=== PATIENT | male | born 1950 | race Caucasian/White ===

== ENCOUNTER 2018-05-22 09:02 | Day surgery (SDC) | payer MEDICARE, OTHER, SELFPAY ==
[2018-05-19 13:03] VITALS: BMI 32.3
[2018-05-22] VITALS (12 sets, daily range): BP systolic 119–160; BP diastolic 63–120; PULSE 61–103; RESP 10–18; TEMP 36.2–37.1; O2SAT 93–100; BMI 31.1
--- NOTE | 2018-05-22 09:51 | SUR.PREOP ---
Pt ready for OR at this time. Nursing admission completed, IV in place and LR at TKO, Pt has been clipped, Chlorhexedine wipes to L wrist completed and SCD's in place. Awaiting surgeon and Anesthesia to see Pt. WAREHOUSE TEAM MEMBER will also come by and see Pt prior to taking to OR suite.
[2018-05-22] MEDS: LACTATED RINGERS 1,000 ML 42 ML IV (10:15)
[2018-05-22] MEDS: CEFAZOLIN 2 GM/100 ML FROZ.PIGGY IV (10:42)
--- NOTE | 2018-05-22 11:06 | SUR.OPER ---
Supine on padded OR bed, head on pillow, right arm secured on padded arm board at <90 degrees abduction, left arm on hand table, legs uncrossed, safety belt at thigh, tape over blanket over lower legs.
[2018-05-22] MEDS: BUPIVACAINE 0.5% W/ EPI (PF) VIAL 30 ML INJ (12:22)
--- NOTE | 2018-05-22 12:29 | PM.PREOP ---
Pre-operative Note Interval Note Pre-op Check: Yes History & Physical Reviewed by Physician Changes: No
[2018-05-22] MEDS: fentaNYL 100 MCG/2 ML INJ IV ×3 (12:38→13:10)
[2018-05-22] MEDS: HYDROMORPHONE 2 MG INJ 0.5 MG IV ×3 (12:45→12:55)
--- NOTE | 2018-05-22 13:02 | P.OP_ITS ---
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 Patient had significant arthritis as well as pain and dysfunction that was unresponsive to conservative treatment. Surgeon: Tawanda Portillo Associate Pathologist: Maria Isabel Craig Click Yes if Unassisted: No Anesthesia Type: General Operative Notes Findings: Signs of a SNAC WRIST. 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 Collapse of the capitate on the lunate and a significant DISI deformity. No sign of any significant arthritis between the lunate and the radius. Closure Type: primary Specimen(s): none sent Implants & Drains: Trimed 4 corner fusion plate Applied: cast(s) and implant(s) Estimated Blood Loss (mL): 10 Blood products transfused: none Tourniquet time (min): 85 Procedure in detail: On date of service, patient was met in the holding area. Operative site was signed and witnessed by the OR staff. The surgery once again discussed with patient and any remaining questions they had were answered fully. Patient was taken back to the operating theater and placed on the operating table in the supine position. Great care taken to ensure that all bony prominences were properly padded. A well-padded tourniquet was placed up along the upper extremity. A timeout was performed to verify patient's name, procedure, and operative site. The upper extremity was then prepped and draped in the normal sterile fashion. An Esmarch was used to exsanguinate the limb and the tourniquet was turned up to 250 mm mercury. A midline incision was made to the dorsal aspect of the wrist starting at the proximal aspect of the 3rd metacarpal proceeding proximally passed Rancho's tubercle. 15 blade was used to incise the skin and fascial tissue. This gave us good visualization of the extensor retinaculum. The extensor retinaculum was split. This allowed us to retract the third and fourth extensor compartments as well as the 2nd. This also gave us good visualization of the wrist capsule. The ligaments splitting approach to the carpus was performed. This gave us good visualization of the entire carpus. Findings of the carpus listed above. Patient had the previous nonunion of the scaphoid. Osteotome was used to split the scaphoid and then the scaphoid was then removed. This was saved for a bone grafting. Once the scaphoid was removed the wrist joint was copiously irrigated. The deformity of the lunate was corrected. K-wire was used to correct the DISI deformity of the lunate and a 2nd K-wire was placed through the radius into the lunate to hold it in that corrected position. Using a combination of a bur as well as rongeur and curette the remaining cartilage surface was removed from all 4 bones until we had good bleeding bony surfaces. Bone graft from the scaphoid was placed between the lunate and triquetrum as well as the hamate and capitate. K-wires were then used to provisionally hold all 4 bones together. X-rays were then obtained verifying overall reduction of the carpus. Next, a Reamer was used to ream the area for the eventual plate. Bone graft from the Reamer was saved. The plate was placed and held provisionally with K- wires. Locking screws were placed along the plate securing the plate to all 4 bones. This provided a secure fixation of the plate to the carpus. Bone graft was packed around all 4 bones and final x-rays were obtained. Capsule split was repaired. The extensor retinaculum was also repaired with 3 0 Vicryl. Wound was copiously irrigated and closed in layered fashion. Patient was placed into a splint and was extubated and taken to the PACU in stable condition. Complications: none Condition: stable Disposition: PACU Plan for aftercare: Patient will be discharged home. He will be immobilized for 6 weeks.
[2018-05-22] MEDS: HYDROCODONE/ACET 5/325 TABLET 1 TAB PO ×2 (13:40→13:53)
== END 2018-05-22 14:25 | disposition home or self-care (01) ==
PROVIDERS: Family Provider Family Medicine; PCP Family Medicine; Visit Provider Orthopaedic Surgery
PROC: (CPT 25825; principal; 2018-05-22 10:45)
DX: M19.132 Post-traumatic osteoarthritis, left wrist (principal); I10 Essential (primary) hypertension; G47.33 Obstructive sleep apnea (adult) (pediatric); Z86.718 Personal history of other venous thrombosis and embolism; Z79.01 Long term (current) use of anticoagulants
CPT/HCPCS: 25825; J0690; J1100; J1170; J2250; J2405; J2704; J3010